=== PATIENT | female | born 1990 | race American Indian/Alaskan Native ===

== ENCOUNTER 2017-03-06 14:31 | Emergency (ER) | payer OTHER ==
--- NOTE | 2017-03-06 14:51 | Emergency Department Report ---
Stated Complaint: LOWER ABDOMINAL PAIN - HPI History of Present Illness: 27F PMH none p/w c/o suprapubic discomfort, +vaginal discharge and dysuria 2-3 days. Sexually active no hx of stds. LMP end of january - ROS Review of Systems: + vaginal discharge - Exam Physical Exam: + suprapubic discomfort MSE screening note: Focused history and physical exam performed. Due to findings the following was ordered: Screening Assessment/Plan/Differential Dx: possible std vs vaginal infection vs UTI 1- This initial assessment/diagnostic orders/clinical plan/ treatment(s) is/are subject to change based on pt's health status, clinical progression and re- assessment by fellow clinical providers in the ED. Further treatment and workup at subsequent clinical provers discretion. Patient/guardians urged not to elope from ED as their condition may be serious if not clinically assessed and managed. 2-ua, upreg, pt need pelvic exam ED Disposition for MSE Condition: Stable
--- NOTE | 2017-03-06 15:05 | Emergency Department Report ---
ED Female HPI - General Chief complaint: Urogenital-Female Stated complaint: LOWER ABDOMINAL PAIN Time Seen by Provider: 03/06/17 15:04 Source: patient Mode of arrival: Ambulatory Limitations: No Limitations - History of Present Illness Initial comments: Patient presented to the emergency room complaining of possible STD from vaginal discharge. Reports having a vaginal discharge for 5 days. Also reports pelvic pain and bilateral flank pain and reports some urinary burning. Denies any blood in her urine. Last menstrual period was 02/19/2017. Pain is 10 out of 10 and crampy and feels like it is moving from her back around to her lower abdomen. Denies any nausea or vomiting. Denies any fever or chills. Patient reports that she has a history of kidney stones and it felt the same and that she passed something that looked like a stone a couple days ago. She says she is taking [id number] pain medication but it's not helping and nothing makes her pain better and nothing makes it worse. Denies any vaginal bleeding. She says she has not had an STD in the past and only had bacterial vaginosis. MD Complaint: vaginal discharge, dysuria, pelvic pain, possible STD Onset/Timin -: days(s) Location: other (back ,bilateral ) Radiation: other (abdomen, lower) Severity: severe Quality: cramping Consistency: constant Worsens with: none Are you Now?: No Last Menstrual Period: 02/19/17 EDC: 11/26/17 Associated Symptoms: vaginal discharge, abdominal pain, dysuria. denies: vaginal bleeding, nausea/vomiting, fever/chills, headaches, loss of appetite, hematuria, rash, seizure, shortness of breath, syncope, weakness - Related Data Sexually active: Yes ( possible STD) Previous Rx's Medication Instructions Recorded Last Taken Type Promethazine [Phenergan TAB] 25 mg PO Q8HR PRN 5 Days #15 tab 03/06/17 Unknown Rx metroNIDAZOLE [Flagyl] 500 mg PO Q12HR 7 Days #14 tab 03/06/17 Unknown Rx oxyCODONE /ACETAMINOPHEN [Percocet 1 tab PO Q6HR PRN 4 Days #16 tablet 03/06/17 Unknown Rx 5/325] Allergies Allergy/AdvReac Type Severity Reaction Status Date / Time hydrocodone Allergy Unknown Verified 03/06/17 14:50 Sulfa (Sulfonamide Allergy Unknown Verified 03/06/17 14:43 Antibiotics) ED Review of Systems ROS: Stated complaint: LOWER ABDOMINAL PAIN Other details as noted in HPI Comment: All other systems reviewed and negative Constitutional: no symptoms reported ENT: denies: throat pain Respiratory: no symptoms reported Cardiovascular: denies: chest pain, palpitations, dyspnea on exertion, edema, syncope, paroxysmal nocturnal dyspnea Gastrointestinal: abdominal pain. denies: nausea, vomiting, diarrhea, constipation, hematemesis, melena, hematochezia Genitourinary: dysuria, discharge. denies: urgency, frequency, hematuria, abnormal menses, dyspareunia Musculoskeletal: back pain. denies: joint swelling, arthralgia, myalgia Skin: denies: rash Neurological: denies: headache, weakness, numbness, paresthesias, confusion, abnormal gait, vertigo ED Past Medical Hx - Past Medical History Previous Medical History?: Yes Hx Seizures: Yes Hx Kidney Stones: Yes Additional medical history: Bacterial vaginosis - Surgical History Past Surgical History?: Yes Additional Surgical History: Right hand surgery, Oral surgery - Family History Family history: no significant - Social History Smoking Status: Current Some Day Smoker Substance Use Type: Alcohol, Marijuana - Medications Home Medications: Home Medications Medication Instructions Recorded Confirmed Last Taken Type Promethazine [Phenergan TAB] 25 mg PO Q8HR PRN 5 Days #15 tab 03/06/17 Unknown Rx metroNIDAZOLE [Flagyl] 500 mg PO Q12HR 7 Days #14 tab 03/06/17 Unknown Rx oxyCODONE /ACETAMINOPHEN [Percocet 1 tab PO Q6HR PRN 4 Days #16 tablet 03/06/17 Unknown Rx 5/325] ED Physical Exam - General Limitations: No Limitations General appearance: alert, in no apparent distress - Head Head exam: Present: atraumatic, normocephalic, normal inspection - Eye Eye exam: Present: normal appearance, PERRL, EOMI Pupils: Present: normal accommodation - ENT ENT exam: Present: normal exam, normal orophraynx, mucous membranes moist - Neck Neck exam: Present: normal inspection, full ROM. Absent: tenderness, meningismus, lymphadenopathy - Respiratory Respiratory exam: Present: normal lung sounds bilaterally. Absent: respiratory distress, chest wall tenderness - Cardiovascular Cardiovascular Exam: Present: regular rate, normal rhythm, normal heart sounds. Absent: systolic murmur, diastolic murmur - GI/Abdominal GI/Abdominal exam: Present: soft, tenderness (tender to palpate the pelvic area. Positive guarding but no rebound.), guarding, normal bowel sounds. Absent: distended, rebound, rigid, organomegaly, mass, bruit, pulsatile mass, hernia - External exam: Present: normal external exam. Absent: erythema, swelling, lesions, lacerations, ecchymosis Speculum exam: Present: vaginal discharge, cervical discharge. Absent: normal speculum exam, erythema, vaginal bleeding, foreign body, tissue, laceration Bi-manual exam: Present: normal bi-manual exam. Absent: cervical motion tendernes, adnexal tenderness, adnexal mass, uterine enlargement, uterine tenderness - Extremities Exam Extremities exam: Present: normal inspection, full ROM, normal capillary refill , other (patient ambulates without any difficulties.). Absent: tenderness, pedal edema, joint swelling, calf tenderness - Back Exam Back exam: Present: normal inspection, full ROM, CVA tenderness (R), CVA tenderness (L). Absent: tenderness, muscle spasm, paraspinal tenderness, vertebral tenderness, rash noted - Expanded Back Exam Expanded Back exam: Absent: saddle anesthesia Back exam: Negative Straight Leg Raising: Left, Right - Neurological Exam Neurological exam: Present: alert, oriented X3, normal gait, reflexes normal, other (no focal neurological deficit). Absent: motor sensory deficit - Psychiatric Psychiatric exam: Present: normal affect, normal mood - Skin Skin exam: Present: warm, dry, intact, normal color. Absent: rash ED Course Vital Signs 03/06/17 14:43 Temperature 98.6 F Pulse Rate 88 Respiratory 16 Rate Blood Pressure 115/64 O2 Sat by Pulse 100 Oximetry - Reevaluation(s) Reevaluation #1: 03/06/17 16:[address] scan revealed that she has bilateral nonobstructive kidney stones. Patient given Toradol 60 mg IM which did not relieve her pain. Percocet 5/ 325 2 tablets ordered. Patient chose to be treated empirically for gonorrhea and chlamydia so Rocephin 250 mg IM and a Zithromax 1 g by mouth to be given. Patient orally hydrated in the emergency room. Reevaluation #2: 03/06/17 17:08 Patient reports relief of pain. Wet prep negative except she has less than 20% clue cells. ED Medical Decision Making - Lab Data Lab Results 03/06/17 Range/Units 14:00 Urine Color Yellow (Yellow) Urine Turbidity Clear (Clear) Urine pH 7.0 (5.0-7.0) Ur Specific [place] 1.005 (1.003-1.030) Urine Protein <15 mg/dl (Negative) mg/dL Urine Glucose (UA) Neg (Negative) mg/dL Urine Ketones Neg (Negative) mg/dL Urine Blood Sm (Negative) Urine Nitrite Neg (Negative) Ur Reducing Substances Not Reportable Urine Bilirubin Neg (Negative) Urine Ictotest Not Reportable Urine Urobilinogen < 2.0 (<2.0) mg/dL Ur Leukocyte Esterase Neg (Negative) Urine WBC (Auto) < 1.0 (0.0-6.0) /HPF Urine RBC (Auto) 2.0 (0.0-6.0) /HPF U Epithel Cells (Auto) 9.0 (0-13.0) /HPF Urine HCG, Qual Negative (Negative) Gonorrhea and chlamydia test is pending Urine culture pending Prepped with positive clue cells, negative Trichomonas and negative yeast cells. - Radiology Data Radiology results: report reviewed The skin of the abdomen and pelvis without IV contrast shows bilateral small nonobstructive renal calculi, small amount of free fluid in the lower pelvis which is most likely physiological. No evidence of hydronephrosis. No urethral calculus identified. Adrenal glands are unremarkable. No pathologically enlarged lymph nodes - Medical Decision Making ED Course: She is here report that she is concerned for STD after having been vaginal discharge, abdominal cramping along with back pain and urinary burning for the past 5 days. She reports a history of kidney stones in the past and felt like she had similar pain at that time and report that she passed something that looked like a stone a couple days ago. Patient with bilateral CVA tenderness and pelvic tenderness. Pelvic exam revealed a discharge in the vagina and cervix but no other abnormality. CT scan of the abdomen and pelvis without contrast revealed bilateral nonobstructive renal calculi and negative hydronephrosis bilaterally. Vaginal swab for gonorrhea and chlamydia pending, wet prep revealed patient with positive bacterial vaginosis negative yeast and trichomoniasis. I discussed results with patient along with urinalysis which showed negative bacteria but small amount of blood and her test was negative. I discussed with her that she'll need to follow-up with urologist regarding kidney stones. I told her I'll put her on pain medication and nausea medication. I Also medication for bacterial vaginosis. She Does not have a primary care physician and I will refer her to [facility]. She given Toradol 60 mg IM in emergency room this did not relieve her pain. She was given Percocet 5/325 2 tablets by mouth and Zofran 4 mg ODT which she said her pain is better. treated for CHL with Rocephin 250mg IM and Azithromax 1 gram po with no adverse reaction. Patient orally hydrated emergency room and tolerated well. Discharged from emergency department with her boyfriend in stable condition. Critical care attestation.: If time is entered above; I have spent that time in minutes in the direct care of this critically ill patient, excluding procedure time. ED Disposition Clinical Impression: Concern about STD in female without diagnosis, Vaginal discharge, Bacterial vaginosis, Flank pain, Dysuria Abdominal pain Qualifiers: Abdominal location: lower abdomen, unspecified Qualified Code(s): R10.30 - Lower abdominal pain, unspecified Disposition: DC- TO HOME OR SELFCARE Is pt being admited?: No Does the pt Need Aspirin: No Condition: Stable Instructions: Bacterial Vaginosis (ED), Abdominal Pain (ED), Kidney Stones (ED) , Renal Colic (ED), Back Pain (ED), Safe Sex (ED), Sexually Transmitted Diseases (ED) Additional Instructions: To follow-up with a urologist in 2-3 days for kidney stones. Please refrain from having sexual activity for the next 2 weeks. Follow-up with your primary care physician in 2 days and if you do not have a primary care physician please follow-up with outside Medical Center Follow up with [facility] in 7-10 days for repeat STD check You were treated today gonorrhea and chlamydia tests will be back in 5-7 days. Practice safe sex These do not drink alcohol for the next 7 days as this will interact negatively with medication given for bacterial vaginosis Tell partner know that you're treated for STD and hospital today. increase her fluid intake Please drink at least 3 L of fluid per day to flush kidneys and this will help to flush kidney stones. Please do not drive or operate heavy machinery while taking in Percocet or Phenergan as these medication causes drowsiness Prescriptions: metroNIDAZOLE [Flagyl] 500 mg PO Q12HR 7 Days #14 tab oxyCODONE /ACETAMINOPHEN [Percocet 5/325] 1 tab PO Q6HR PRN 4 Days #16 tablet PRN Reason: Pain Promethazine [Phenergan TAB] 25 mg PO Q8HR PRN 5 Days #15 tab PRN Reason: Nausea Referrals: [facility] [Provider Group] - 2-3 Days [facility] [Outside] - 2-3 Days Forms: STI Treatment and Prevention, Accompanied Note, Work/School Release Form (ED)
[2017-03-06 15:20] LABS: Bilirubin,Urine NEG (Negative); Blood,Urine SM (Negative); Ketones,Urine NEG (Negative); Leukocyte Esterase,Urine NEG (Negative); Nitrite,Urine NEG (Negative); Protein,Urine <15 mg/dL mg/dL (Negative); Urobilinogen,Urine < 2.0 mg/dL (<2.0); WBC,Urine < 1.0 /HPF (0.0-6.0)
[2017-03-06] MEDS ORDERED: TORADOL IM ONE (15:43)
--- NOTE | 2017-03-06 16:18 | Cat Scan Report ---
FINAL REPORT EXAM: CT ABDOMEN PELVIS WO CON HISTORY: back pain, h/o kidney stones TECHNIQUE: CT abdomen and pelvis without contrast PRIORS: None. FINDINGS: No acute abnormality identified in the lung bases. No focal abnormality identified within the liver parenchyma. The spleen demonstrates normal size and attenuation. No pancreatic abnormalities seen. There are 4 punctate nonobstructing right renal calculi. No evidence for hydronephrosis. No ureteral calculus identified. There is a punctate nonobstructing left renal calculus. No evidence for hydronephrosis. No ureteral calculus identified. The adrenal glands are unremarkable. Abdominal aorta is normal in caliber. No pathologically enlarged lymph nodes are identified. Small amount of free fluid noted in the lower pelvis most likely physiologic Central hypodensity noted in the uterus No evidence of small bowel dilatation. No evidence of colonic dilatation. No pericolonic inflammatory change seen. IMPRESSION: Bilateral small nonobstructing renal calculi Small amount of free fluid in the lower pelvis which is most likely physiologic
[2017-03-06] MEDS ORDERED: PERCOCET 5/325 PO ONE (16:33)
[2017-03-06] MEDS ORDERED: ZITHROMAX PO ONE (16:33)
[2017-03-06] MEDS ORDERED: ZOFRAN ODT PO ONE (16:33)
[2017-03-06] MEDS ORDERED: XYLOCAINE 1% MPF 5 mL INFILTRATI ONE (16:33)
[2017-03-06] MEDS ORDERED: ROCEPHIN IM ONE (16:33)
[2017-03-06 17:59] VITALS: BP 120/78
== END 2017-03-06 17:58 | disposition home or self-care (01) ==
LOC: ED 14:31
DX: N76.0 Acute vaginitis (principal); B96.89 Other specified bacterial agents as the cause of diseases classified elsewhere; N89.8 Other specified noninflammatory disorders of vagina; R10.30 Lower abdominal pain, unspecified; R30.0 Dysuria; R56.9 Unspecified convulsions; Z88.2 Allergy status to sulfonamides; F12.10 Cannabis abuse, uncomplicated; F17.200 Nicotine dependence, unspecified, uncomplicated
CPT/HCPCS: 74176; 81001; 81025; 87086; 87210; 87591; 96372; 99284; J0696; J1885; Q0162